=== PATIENT | male | born 1970 ===

== ENCOUNTER 2020-12-13 11:51 | Emergency (ER) | payer MEDICAID ==
[~2020-12-13] VITALS: Ht 182.9 cm; Wt 140.0 kg
--- NOTE | 2020-12-13 12:09 | NUR ---
with no signs of trauma, this pt is resting on an e.r. gurney sleeping sonorously. his vs are stable, and he admits to excessive etoh last night and this morning/. i will monitor and treat as ordered, as well as prn while awaiting a further vplan of care.
[2020-12-13] MEDS ORDERED: SODIUM CHLORIDE 0.9% 1,000ML IVBOLUS ONE (13:30)
[2020-12-13] MEDS ORDERED: SODIUM CHLORIDE FLUSH 10ML SYR IVF ONE (13:30)
--- NOTE | 2020-12-13 13:47 | NUR ---
pt refusing IV at this time. vs arestable, and wdl. i will continue to monitor and treat as ordered, as well as prn while allowing etoh to metabolize.
--- NOTE | 2020-12-13 15:04 | NUR ---
ASSUMED CARE OF PATIENT. BEDSIDE REPORT GIVEN FROM YAIMA LOONEY
--- NOTE | 2020-12-13 15:04 | NUR ---
Pee benitez in ED - 12/13/20 at 1512 by LUCIE ramin carvajal) is assuming care of this pt at this time. sbar was exchanged at the bedside.
--- NOTE | 2020-12-13 15:06 | NUR ---
harris (rn) is assuming care of this pt at this time. sbar was exchanged at the bedside.
[2020-12-13 15:35] VITALS: BP 120/86
--- NOTE | 2020-12-13 15:37 | NUR ---
VS STABLE. PT IS A&O X4. PT REPORTS HE WANTS TO LEAVE. DR BARKER. AWARE.
--- NOTE | 2020-12-13 15:47 | NUR ---
DR BARKER HAS SEEN PATIENT, OKAYED FOR DISCHARGED. PT REFUSED TAXI VOUCHER PT WANTS TO WALK.
--- NOTE | 2020-12-13 15:54 | NUR ---
PT IS ABLE TO GET SELF DRESSED, SAFELY ABMULATE AROUND ROOM. PT HAS APPROPRIATE CLOTHING ON. PT IS A&O X4. PT LEFT BEFORE WRITTEN DISCHARGE INSTRUCTIONS COULD BE GIVEN.
--- NOTE | 2020-12-13 15:55 | NUR ---
PT DISCHARGED PER DR BARKER.
== END 2020-12-13 15:57 | disposition home or self-care (01) ==
LOC: EDBD → MERGE 11:51 → ED 15:50
DX: F10.221 Alcohol dependence with intoxication delirium (principal); R94.31 Abnormal electrocardiogram [ECG] [EKG]; Y90.0 Blood alcohol level of less than 20 mg/100 ml
CPT/HCPCS: 36415; 80320; 93005; 99284; G0480